=== PATIENT | female | born 1985 | race Caucasian/White ===

== ENCOUNTER 2017-02-10 16:08 | Inpatient (IN) | payer BC ==
[2017-02-10] MEDS ORDERED: Sodium Chloride 0.9% 1,000 ML IV STA (17:06)
[2017-02-10 17:21] LABS: URINE BILIRUBIN NEGATIVE (NEGATIVE); URINE BLOOD TRACE-INTACT (NEGATIVE); URINE GLUCOSE (UA) NEGATIVE (NEGATIVE); URINE KETONE 40 mg/dL (NEGATIVE); URINE LEUKOCYTE ESTERASE SMALL Leu/uL (NEGATIVE); URINE PROTEIN NEGATIVE mg/dL (<30 mg/dL); URINE UROBILINOGEN 0.2 E.U./dL (<1 E.U./dL)
[2017-02-10 17:37] LABS: URINE APPEARANCE SL CLOUDY (CLEAR); URINE COLOR YELLOW (YELLOW)
[2017-02-10 17:39] LABS: URINE BACTERIA MANY (NEG); URINE WBC 25 - 30 /hpf (0-6)
[2017-02-10 17:44] LABS: INR 1.21 (0.93-1.08); PARTIAL THROMBOPLASTIN TIME 32.9 Seconds (25.1-36.5)
[2017-02-10 17:55] LABS: BASO # 0.02 K/mm3 (0.0-2.0); BASO % 0.2 % (0.0-3.0); EOS # 0.1 (0.0-0.7); EOS % 1.1 % (1.5-5.0); GRAN # 10.51 (1.4-6.5); GRAN % 83.3 % (50.0-68.0); HEMATOCRIT 40.9 % (36.0-48.0); LYMPH # 1.2 (1.2-3.4); LYMPH % 9.3 % (22.0-35.0); MEAN CELL VOLUME 84.7 fl (80.0-105.0); MEAN CORPUSCULAR HEMOGLOBIN 27.5 pg (25.0-35.0); MEAN CORPUSCULAR HGB CONC 32.5 g/dl (31.0-37.0); MEAN PLATELET VOLUME 12.4 fl (7.0-11.0); MONO # 0.8 (0.1-0.6); MONO % 6.1 % (1.0-6.0); RED CELL DISTRIBUTION WIDTH 13.4 % (11.5-14.5); WHITE BLOOD COUNT 12.6 10^3/ul (4.5-11.0)
--- NOTE | 2017-02-10 18:17 | ED PDOC ---
Arrival/HPI - General Chief Complaint: Abdominal Pain Time Seen by Provider: 02/10/17 16:56 Historian: Patient - History of Present Illness Narrative History of Present Illness (Text): 02/10/17 18:15 31yo female who present with constant RLQ abdominal pain , that started at 1200pm. she denies any associated nausea, vomiting,diarrhea, constipation, fever , chills, urinary symptoms, hematemesis, hematochezia, any other complaint. Past Medical History - Provider Review Nursing Documentation Reviewed: Yes - Infectious Disease Hx of Infectious Diseases: None - Reproductive Menopause: Yes - Psychiatric Hx Substance Use: No Family/Social History - Physician Review Nursing Documentation Reviewed: Yes Family/Social History: Unknown Family HX Smoking Status: Unknown If Ever Smoked Hx Alcohol Use: No Hx Substance Use: No Allergies/Home Meds Allergies/Adverse Reactions: Allergies No Known Allergies Allergy (Verified 02/10/17 16:52) Home Medications: Home Meds Medication Instructions Recorded Confirmed No Known Home Med 02/10/17 02/10/17 Review of Systems - Physician Review All systems were reviewed & negative as marked: Yes - Review of Systems Constitutional: Normal Eyes: Normal ENT: Normal Respiratory: Normal Cardiovascular: Normal Gastrointestinal: Abdominal Pain. absent: Constipation, Diarrhea, Nausea, Vomiting, Hematochezia, Hematemesis Genitourinary Female: Normal Musculoskeletal: Normal Skin: Normal Neurological: Normal Endocrine: Normal Hemo/Lymphatic: Normal Psychiatric: Normal Physical Exam Vital Signs Reviewed: Yes Vital Signs Temp Pulse Resp BP Pulse Ox 02/10/17 16:48 99.5 F 77 18 128/76 99 Temperature: Afebrile Blood Pressure: Normal Pulse: Regular Respiratory Rate: Normal Appearance: Positive for: Well-Appearing, Non-Toxic, Comfortable Pain Distress: None Mental Status: Positive for: Alert and Oriented X 3 - Systems Exam Head: Present: Atraumatic, Normocephalic Pupils: Present: PERRL Extroacular Muscles: Present: EOMI Conjunctiva: Present: Normal Mouth: Present: Moist Mucous Membranes Neck: Present: Normal Range of Motion Respiratory/Chest: Present: Clear to Auscultation, Good Air Exchange. No: Respiratory Distress, Accessory Muscle Use Cardiovascular: Present: Regular Rate and Rhythm, Normal S1, S2. No: Murmurs Abdomen: Present: Tenderness (RLQ tenderness), Normal Bowel Sounds, Guarding ( Voluntary), Other (Soft). No: Distention, Peritoneal Signs, Rebound, McBurney' s Point Tender, Rovsing's Sign Present Back: Present: Normal Inspection Upper Extremity: Present: Normal Inspection. No: Cyanosis, Edema Lower Extremity: Present: Normal Inspection. No: Edema Neurological: Present: GCS=15, CN II-XII Intact, Speech Normal Skin: Present: Warm, Dry, Normal Color. No: Rashes Psychiatric: Present: Alert, Oriented x 3, Normal Insight, Normal Concentration Medical Decision Making ED Course and Treatment: 02/10/17 20:47 31yo female in ED for RLQ x hours. Lab ordered NS, Toradol, Pepcid ordered Abdominal CT ordered Leukocytosis was noted . Pt's pain was controlled in ED with medication Abdominal CT prominence of the retrocecal appendix with wall thickening and minimal adjacent inflammation. Maximal diameter is approximately 10 mm. There is minimal inflammation and edema in the right colic gutter. There is moderate stool in the right and transverse colon. There is scattered diverticulosis. Appendix: See stomach and bowel PELVIS: Bladder: unremarkable Reproductive: Uterus is retroflexed. There is an IUD. Adnexa are unremarkable. ABDOMEN and PELVIS: Intraperitoneal space: There is no significant fluid.There is no free air. Bones/joints: There are no acute osseous abnormalities. Soft tissues: There is a small fat containing umbilical hernia. Vasculature: Vascular structures are unremarkable. Lymph nodes: There is no pathologic adenopathy. IMPRESSION: Appendicitis; probable constipation and Case was DW Dr. Gallagher and pt was admitted Case was DAVID Strange and the neurosurgical physician assistant Radha ordered Result and plan was DW the pt and the family members by the bedside. - Lab Interpretations Lab Results: 02/10/17 17:25 02/10/17 17:25 Lab Results 02/10/17 17:25: Sodium 139, Potassium 3.7, Chloride 102, Carbon Dioxide 27, Anion Gap 14, BUN 18, Creatinine 0.6 L, Est GFR ( Amer) > 60, Est GFR ( Non-Af Amer) > 60, Random Glucose 90, Calcium 9.1, Total Bilirubin 1.0, AST 34, ALT 50, Alkaline Phosphatase 68, Total Protein 8.4 H, Albumin 4.7, Globulin 3.7 , Albumin/Globulin Ratio 1.2, Lipase 46 02/10/17 17:25: PT 13.2 H, INR 1.21 H, APTT 32.9 02/10/17 17:25: WBC 12.6 H, RBC 4.83, Hgb 13.3, Hct 40.9, MCV 84.7, MCH 27.5, MCHC 32.5, RDW 13.4, Plt Count 168, MPV 12.4 H, Gran % 83.3 H, Lymph % (Auto) 9.3 L, [place] % (Auto) 6.1 H, Eos % (Auto) 1.1 L, Baso % (Auto) 0.2, Gran # 10.51 H, Lymph # 1.2, [place] # 0.8 H, Eos # 0.1, Baso # 0.02 02/10/17 17:10: Urine Color Yellow, Urine Appearance Sl cloudy, Urine pH 6.0, Ur Specific [place] >= 1.030, Urine Protein Negative, Urine Glucose (UA) Negative, Urine Ketones 40 H, Urine Blood Trace-intact H, Urine Nitrate Negative , Urine Bilirubin Negative, Urine Urobilinogen 0.2, Ur Leukocyte Esterase Small H, Urine RBC 5 - 10, Urine WBC 25 - 30, Ur Epithelial Cells 6 - 8, Urine Bacteria Many - RAD Interpretation Radiology Orders: 02/10/17 18:07 ABD & PELVIS IV CONTRAST ONLY [CT] Stat - Medication Orders Current Medication Orders: Discontinued Medications Famotidine (Pepcid) 20 mg IVP STAT STA Stop: 02/10/17 17:07 Last Admin: 02/10/17 17:22 Dose: 20 mg IVP Administration Document 02/10/17 17:22 SE (Rec: 02/10/17 17:22 SE [id number]) Charges for Administration # of IVP Administrations 1 Sodium Chloride (Sodium Chloride 0.9%) 1,000 mls @ 1,000 mls/hr IV .Q1H STA Stop: 02/10/17 18:05 Last Admin: 02/10/17 17:22 Dose: 1,000 mls/hr eMAR Start Stop Document 02/10/17 17:22 SE (Rec: 02/10/17 17:22 SE [id number]) Intravenous Solution Start Date 02/10/17 Start Time 17:22 Piperacillin Sod/Tazobactam Sod (Zosyn 3.375 In Ns 100ml) 100 mls @ 200 mls/hr IVPB STAT STA PRN Reason: Protocol Stop: 02/10/17 20:47 Last Admin: 02/10/17 20:31 Dose: 200 mls/hr eMAR Start Stop Document 02/10/17 20:31 SE (Rec: 02/10/17 20:32 SE [id number]) Intravenous Solution Start Date 02/10/17 Start Time 20:31 Ketorolac Tromethamine (Toradol) 30 mg IVP STAT STA Stop: 02/10/17 17:07 Last Admin: 02/10/17 17:22 Dose: 30 mg MAR Pain Assessment Document 02/10/17 17:22 SE (Rec: 02/10/17 17:22 SE [id number]) Pain Reassessment Is this a pain reassessment? No Sleep Is patient sleeping during reassessment? No Presence of Pain Presence of Pain Yes Pain Scale Used Pain Scale Used Numeric IVP Administration Document 02/10/17 17:22 SE (Rec: 02/10/17 17:22 SE [id number]) Charges for Administration # of IVP Administrations 1 Disposition/Present on Arrival - Present on Arrival Any Indicators Present on Arrival: No History of DVT/PE: No History of Uncontrolled Diabetes: No Urinary Catheter: No History of Decub. Ulcer: No History Surgical Site Infection Following: None - Disposition Have Diagnosis and Disposition been Completed?: Yes Diagnosis: Appendicitis Disposition: HOSPITALIZED Disposition Time: 20:50 Condition: FAIR
[2017-02-10 18:31] LABS: ALB/GLOB RATIO 1.2 (1.1-1.8); ALKALINE PHOSPHATASE 68 U/L (38-126); ALT/SGPT 50 U/L (7-56); AST/SGOT 34 U/L (14-36); BLOOD UREA NITROGEN 18 mg/dL (7-21); CALCIUM 9.1 mg/dL (8.4-10.5); CARBON DIOXIDE 27 mmol/L (21-33); CHLORIDE 102 mmol/L (98-107); GFR AFRICAN-AMERICAN > 60; GLUCOSE,RANDOM 90 mg/dL (70-110); POTASSIUM 3.7 mmol/L (3.6-5.0); SODIUM 139 mmol/L (132-148); TOTAL PROTEIN 8.4 g/dL (5.8-8.3)
[2017-02-10] MEDS ORDERED: Iohexol 350 MG/100 ML VIAL ONE (18:39)
[2017-02-10 18:44] LABS: LIPASE 46 U/L (23-300)
--- NOTE | 2017-02-10 19:54 | CT ---
EXAM: CT Abdomen and Pelvis With Intravenous Contrast EXAM DATE/TIME: 02/10/2017 6:07 PM CLINICAL HISTORY: 31 years old, female; Pain; Abdominal pain; Localized; Right TECHNIQUE: Axial computed tomography images of the abdomen and pelvis with intravenous contrast. All CT scans at this facility use one or more dose reduction techniques, viz.: automated exposure control; ma/kV adjustment per patient size (including targeted exams where dose is matched to indication; i.e. head); or iterative reconstruction technique. MIP reconstructed images were created and reviewed. Coronal and sagittal reformatted images were created and reviewed. CONTRAST: 95 mL of omnipaque 350 administered intravenously. COMPARISON: There are no prior studies for comparison. FINDINGS: Artifacts: Motion artifact degrades image quality. Lower thorax: Heart size is normal. There is a small hiatal hernia. Lung bases are clear ABDOMEN: Liver: unremarkable Gallbladder and bile ducts: unremarkable Pancreas: unremarkable Spleen: unremarkable Adrenals: Adrenals are mildly nodular. Kidneys and ureters: unremarkable Stomach and bowel: Stomach is almost empty. Rotation is normal. Proximal small bowel is mildly distended. The small bowel is mildly distended with air. There is fecalization of the distal and terminal ileum. There is mild prominence of the retrocecal appendix with wall thickening and minimal adjacent inflammation. Maximal diameter is approximately 10 mm. There is minimal inflammation and edema in the right colic gutter. There is moderate stool in the right and transverse colon. There is scattered diverticulosis. Appendix: See stomach and bowel PELVIS: Bladder: unremarkable Reproductive: Uterus is retroflexed. There is an IUD. Adnexa are unremarkable. ABDOMEN and PELVIS: Intraperitoneal space: There is no significant fluid.There is no free air. Bones/joints: There are no acute osseous abnormalities. Soft tissues: There is a small fat containing umbilical hernia. Vasculature: Vascular structures are unremarkable. Lymph nodes: There is no pathologic adenopathy. IMPRESSION: Appendicitis; probable constipation and Additional findings as described above.
[2017-02-10] MEDS ORDERED: Piperacillin/Tazobact 3.375 gm 100 ML IVPB STA (20:18)
[2017-02-10] MEDS ORDERED: Lactated Ringer's 1,000 ML IV SCH (22:15)
--- NOTE | 2017-02-10 22:24 | CP.PCM.CON ---
<Osmani Oliver - Last Filed: 02/10/17 22:18> History of Present Illness - History of Present Illness History of Present Illness: General Surgery Consult note. Dr. Sparrow 31yo F with no PMHx here for evaluation of acute abdominal pain. [place] 12PM [place] Described as originally localized to the periumbilical region, then slowly localized to the RLQ. Pain does radiate to the Right flank and down right inguinal region. Last meal was at 10AM. She does report some constipation for the past 2 days, took 1 dose of OTC miralax 2 days ago without any improvement. She does report that she is 3 months post- after a normal, uncomplicated vaginal delivery and is currently breast- feeding. She denies any N/V/D. Denies F/C. No urinary complaints. No dizziness. No headaches. No chest pain, SOB. No fatigue. No sick contacts. Has not had menstrual periods since recent delivery. Urine test is negative. PMD: Dr. Gallagher PMHx: denies PSHx: denies Family Hx: deneis Social Hx: denies Tobacco use, denies ETOH, denies illicit drugs. Lives at home with family NKDA Review of Systems - Review of Systems All systems: reviewed and no additional remarkable complaints except - Constitutional Constitutional: absent: Chills, Fever - Cardiovascular Cardiovascular: absent: Chest Pain, Diaphoresis, Dyspnea - Respiratory Respiratory: absent: Dyspnea - Gastrointestinal Gastrointestinal: Abdominal Pain, Constipation. absent: Diarrhea, Nausea, Vomiting - Genitourinary Genitourinary: absent: Difficulty Urinating, Dysuria - Neurological Neurological: absent: Dizziness, Headaches Past Patient History - Infectious Disease Hx of Infectious Diseases: None - Past Social History Smoking Status: Unknown If Ever Smoked - PSYCHIATRIC Hx Substance Use: No Meds Allergies/Adverse Reactions: Allergies Allergy/AdvReac Type Severity Reaction Status Date / Time No Known Allergies Allergy Verified 02/10/17 16:52 - Medications Medications: Current Medications Acetaminophen (Tylenol 325mg Tab) 650 mg PO Q6H PRN PRN Reason: Fever >100.4 F Lactated Ringer's (Lactated Ringer's) 1,000 mls @ 100 mls/hr IV .Q10H TSERING Piperacillin Sod/Tazobactam Sod (Zosyn 3.375 In Ns 100ml) 100 mls @ 200 mls/hr IVPB Q6 TSERING PRN Reason: Protocol Stop: 02/11/17 06:29 Ketorolac Tromethamine (Toradol) 15 mg IVP Q6 PRN PRN Reason: Pain, moderate (4-7) Ondansetron HCl (Zofran Inj) 4 mg IVP Q6H PRN PRN Reason: Nausea/Vomiting Physical Exam - Constitutional Appears: Well, Non-toxic, No Acute Distress - Head Exam Head Exam: ATRAUMATIC, NORMAL INSPECTION, NORMOCEPHALIC - Eye Exam Eye Exam: EOMI, Normal appearance. absent: Scleral icterus - ENT Exam ENT Exam: Mucous Membranes Moist - Respiratory Exam Respiratory Exam: Clear to Auscultation Bilateral, NORMAL BREATHING PATTERN. absent: Accessory Muscle Use, Decreased Breath Sounds, Rales, Rhonchi, Wheezes, Respiratory Distress - Cardiovascular Exam Cardiovascular Exam: RRR, +S1, +S2. absent: Diastolic murmur, JVD, Systolic Murmur - GI/Abdominal Exam GI & Abdominal Exam: Soft. absent: Distended, Firm, Guarding, Rebound, Rigid Additional comments: RLQ moderate tenderness to palpation. - Extremities Exam Extremities exam: Positive for: normal inspection. Negative for: calf tenderness, pedal edema - Neurological Exam Neurological exam: Alert, CN II-XII Intact, Oriented x3 - Psychiatric Exam Psychiatric exam: Normal Affect, Normal Mood - Skin Skin Exam: Dry, Intact, Normal Color, Warm Results - Vital Signs Recent Vital Signs: Last Vital Signs Temp 99.5 F 02/10/17 16:48 Pulse 77 02/10/17 16:48 Resp 18 02/10/17 16:48 BP 128/76 02/10/17 16:48 Pulse Ox 99 02/10/17 16:48 - Labs Result Diagrams: 02/10/17 17:25 02/10/17 17:25 Assessment & Plan - Assessment and Plan (Free Text) Assessment: 31yo F here with acute appendicitis - Plan for OR in the mornin/30 - NPO after midnight - continue IVF - continue abx - pain management - f/u preop CXR, EKG - f/u AM labs - written consent obtained and on chart - recommended to cease breast feeding until further notice. Patient expressed full understanding. Further recs as per Dr. Kyara Oliver PGY1 surgery pager: [phone] <Berto Sparrow - Last Filed: 02/10/17 23:12> Meds - Medications Medications: Current Medications Acetaminophen (Tylenol 325mg Tab) 650 mg PO Q6H PRN PRN Reason: Fever >100.4 F Lactated Ringer's (Lactated Ringer's) 1,000 mls @ 100 mls/hr IV .Q10H [facility] Last Admin: 02/10/17 22:37 Dose: 100 mls/hr Piperacillin Sod/Tazobactam Sod (Zosyn 3.375 In Ns 100ml) 100 mls @ 200 mls/hr IVPB Q6 TSERING PRN Reason: Protocol Stop: 02/11/17 06:29 Ketorolac Tromethamine (Toradol) 15 mg IVP Q6 PRN PRN Reason: Pain, moderate (4-7) Ondansetron HCl (Zofran Inj) 4 mg IVP Q6H PRN PRN Reason: Nausea/Vomiting Pantoprazole Sodium (Protonix Inj) 40 mg IVP DAILY [facility] Results - Vital Signs Recent Vital Signs: Last Vital Signs Temp 99.5 F 02/10/17 16:48 Pulse 77 02/10/17 16:48 Resp 18 02/10/17 16:48 BP 128/76 02/10/17 16:48 Pulse Ox 99 02/10/17 16:48 - Labs Result Diagrams: 02/10/17 17:25 02/10/17 17:25 Assessment & Plan - Assessment and Plan (Free Text) Plan: Patient was seen and examined by me. I agree with assessment and plan as per resident's note. However, given the presence of leukocytosis in urine and possibility of UTI as well as possibly this beeing just an early appendicitis we will proceed with hydration and antibiotics overnight and reevaluate in the morning for possible appendectomy. - Date & Time Date: 02/10/17 Time: 23:12
[2017-02-10] MEDS ORDERED: HYDROmorphone 1 mg/ml ISec IVP PRN (23:12)
[2017-02-10] MEDS ORDERED: Sodium Chloride 0.9% 1,000 ML IV SCH (23:15)
--- NOTE | 2017-02-11 00:19 | CP.PCM.PN ---
Subjective - Date & Time of Evaluation Date of Evaluation: 02/11/17 Time of Evaluation: 00:19 - Subjective Subjective: S:Patient is having nausea. Had dilaudid 1 mg IV given earlier. Has no other complaints. Requests to reduce dose of dilaudid. Medical record was reviewed. O: Last Vital Signs 3 Temp 97.5 F L 02/11/17 00:03 Pulse 64 02/11/17 00:03 Resp 18 02/11/17 00:03 BP 102/59 L 02/11/17 00:03 Pulse Ox 99 02/10/17 16:48 Awake, alert. Not in distress. LUNGS:Normal breathing pattern. A:Nausea 2* to dilaudid. P:Zofran 4 mg IV x 1 . Change dilaudid to 0.5 mg. Objective - Vital Signs/Intake and Output Vital Signs (last 24 hours): Temp Pulse Resp BP Pulse Ox 97.5 F L 64 18 102/59 L 99 02/11/17 00:03 02/11/17 00:03 02/11/17 00:03 02/11/17 00:03 02/10/17 16:48 - Medications Medications: Current Medications Acetaminophen (Tylenol 325mg Tab) 650 mg PO Q6H PRN PRN Reason: Fever >100.4 F Hydromorphone HCl (Dilaudid) 1 mg IVP Q4H PRN PRN Reason: Pain, moderate (4-7) Piperacillin Sod/Tazobactam Sod (Zosyn 3.375 In Ns 100ml) 100 mls @ 200 mls/hr IVPB Q6 TSERING PRN Reason: Protocol Stop: 02/11/17 06:29 Sodium Chloride (Sodium Chloride 0.9%) 1,000 mls @ 100 mls/hr IV .Q10H [facility]ERING - Labs Labs: PT 13.2 SECONDS (9.4-12.5) H 02/10/17 17:25 INR 1.21 (0.93-1.08) H 02/10/17 17:25 APTT 32.9 Seconds (25.1-36.5) 02/10/17 17:25
[2017-02-11] MEDS: Piperacillin/Tazobact 3.375 gm 100 ML IVPB SCH ×4 (01:41→18:07)
[2017-02-11] MEDS ORDERED: Sodium Chloride 0.9% 500 ML IV STA ×2 (05:31→05:33)
[2017-02-11] MEDS ORDERED: HYDROmorphone 0.5 mg/0.5 ml ISec IVP PRN ×2 (05:36→09:23)
[2017-02-11 06:41] LABS: INR 1.29 (0.93-1.08)
[2017-02-11 06:47] LABS: BASO # 0.01 K/mm3 (0.0-2.0); BASO % 0.1 % (0.0-3.0); EOS # 0.1 (0.0-0.7); GRAN # 5.1 (1.4-6.5); GRAN % 71.8 % (50.0-68.0); HEMATOCRIT 33.7 % (36.0-48.0); LYMPH # 1.4 (1.2-3.4); LYMPH % 20.3 % (22.0-35.0); MEAN CELL VOLUME 84.7 fl (80.0-105.0); MEAN CORPUSCULAR HEMOGLOBIN 27.9 pg (25.0-35.0); MEAN CORPUSCULAR HGB CONC 32.9 g/dl (31.0-37.0); MEAN PLATELET VOLUME 12.4 fl (7.0-11.0); MONO # 0.5 (0.1-0.6); MONO % 6.8 % (1.0-6.0); RED CELL DISTRIBUTION WIDTH 13.7 % (11.5-14.5); WHITE BLOOD COUNT 7.1 10^3/ul (4.5-11.0)
[2017-02-11 06:56] LABS: ALB/GLOB RATIO 1.2 (1.1-1.8); ALKALINE PHOSPHATASE 51 U/L (38-126); ALT/SGPT 51 U/L (7-56); AST/SGOT 26 U/L (14-36); BILIRUBIN,TOTAL 0.8 mg/dL (0.2-1.3); BLOOD UREA NITROGEN 14 mg/dL (7-21); CALCIUM 8.2 mg/dL (8.4-10.5); CARBON DIOXIDE 27 mmol/L (21-33); CHLORIDE 108 mmol/L (98-107); GFR AFRICAN-AMERICAN > 60; GLUCOSE,RANDOM 80 mg/dL (70-110); SODIUM 141 mmol/L (132-148); TOTAL PROTEIN 6.4 g/dL (5.8-8.3)
--- NOTE | 2017-02-11 07:17 | CP.PCM.HP ---
History of Present Illness - History of Present Illness History of Present Illness: Surgery H&P. Dr. Sparrow 31yo F with no PMHx here for evaluation of acute abdominal pain. Pain started [place] 12PM [place]. Described as originally localized to the periumbilical region, then slowly localized to the RLQ. Pain does radiate to the Right flank and down right inguinal region. Last meal was at 10AM. She does report some constipation for the past 2 days, took 1 dose of OTC miralax 2 days ago without any improvement. She does report that she is 3 months post- after a normal, uncomplicated vaginal delivery and is currently breast- feeding. She denies any N/V/D. Denies F/C. No urinary complaints. No dizziness. No headaches. No chest pain, SOB. No fatigue. No sick contacts. Has not had menstrual periods since recent delivery. Urine test is negative. PMD: Dr. Gallagher PMHx: denies PSHx: denies Family Hx: deneis Social Hx: denies Tobacco use, denies ETOH, denies illicit drugs. Lives at home with family NKDA Physical Exam: Head: NCAT ENT: mucous membranes moist Cardiac: RRR, No murmurs, no gallops or rubs Resp: Clear to auscultation bilaterally. No wheezes, no rhonchi Abdomen: Positive McBurney's point tenderness. RLQ tenderness. No CVA tenderness. No Rebound tenderness. No guarding. No previous surgical scars apparent. No hernia or masses palpable. Abd is soft, non distended. Extremity: No calf tenderness. No edema. DP, PT pulses intact bilaterally Skin: No jaundice. Warm, dry, intact Review of Systems - Review of Systems All systems: reviewed and no additional remarkable complaints except - Constitutional Constitutional: absent: Chills, Fever - Cardiovascular Cardiovascular: absent: Chest Pain, Dyspnea - Respiratory Respiratory: absent: Cough, Dyspnea - Gastrointestinal Gastrointestinal: Abdominal Pain, Nausea, Vomiting Past Patient History - Infectious Disease Hx of Infectious Diseases: None - Past Social History Smoking Status: Never Smoked - HEMATOLOGICAL/ONCOLOGICAL Hx Blood Transfusions: No Hx Blood Transfusion Reaction: No (unknown) - MUSCULOSKELETAL/RHEUMATOLOGICAL Hx Falls: No - PSYCHIATRIC Hx Substance Use: No - SURGICAL HISTORY Hx Surgeries: No - ANESTHESIA Hx Anesthesia Reactions: Yes (itching) Hx Malignant Hyperthermia: No Meds Allergies/Adverse Reactions: Allergies Allergy/AdvReac Type Severity Reaction Status Date / Time No Known Allergies Allergy Verified 02/10/17 16:52 Physical Exam - Constitutional Appears: Well, Non-toxic, No Acute Distress - Head Exam Head Exam: ATRAUMATIC, NORMAL INSPECTION, NORMOCEPHALIC - ENT Exam ENT Exam: Mucous Membranes Moist - Respiratory Exam Respiratory Exam: Clear to Auscultation Bilateral. absent: Rhonchi - Cardiovascular Exam Cardiovascular Exam: absent: JVD - GI/Abdominal Exam GI & Abdominal Exam: Soft. absent: Distended, Guarding, Rebound, Rigid Additional comments: RLQ tenderness. MuBurneys point tenderness. - Extremities Exam Extremities exam: Negative for: calf tenderness, pedal edema - Neurological Exam Neurological exam: Alert, Oriented x3 - Skin Skin Exam: Dry, Intact, Normal Color, Warm Results - Vital Signs Recent Vital Signs: Last Vital Signs Temp 97.5 F L 02/11/17 00:03 Pulse 64 02/11/17 00:03 Resp 18 02/11/17 00:03 BP 102/59 L 02/11/17 00:03 Pulse Ox 99 02/10/17 16:48 - Labs Result Diagrams: 02/11/17 06:15 02/11/17 06:15 Labs: Laboratory Results - last 24 hr 02/11/17 02/11/17 02/11/17 00:53 06:15 06:15 WBC 7.1 D RBC 3.98 Hgb 11.1 L D Hct 33.7 L MCV 84.7 MCH 27.9 MCHC 32.9 RDW 13.7 Plt Count 155 MPV 12.4 H Gran % 71.8 H Lymph % (Auto) 20.3 L Thomas % (Auto) 6.8 H Eos % (Auto) 1.0 L Baso % (Auto) 0.1 Gran # 5.10 Lymph # 1.4 Thomas # 0.5 Eos # 0.1 Baso # 0.01 PT INR Sodium 141 Potassium 4.0 Chloride 108 H Carbon Dioxide 27 Anion Gap 10 BUN 14 Creatinine 0.6 L Est GFR ( Amer) > 60 Est GFR (Non-Af Amer) > 60 POC Glucose (mg/dL) 59 L Random Glucose 80 Calcium 8.2 L Total Bilirubin 0.8 AST 26 ALT 51 Alkaline Phosphatase 51 Total Protein 6.4 Albumin 3.5 Globulin 2.9 Albumin/Globulin Ratio 1.2 BBK History Checked 02/11/17 02/11/17 06:15 06:15 WBC RBC Hgb Hct MCV MCH MCHC RDW Plt Count MPV Gran % Lymph % (Auto) Thomas % (Auto) Eos % (Auto) Baso % (Auto) Gran # Lymph # Thomas # Eos # Baso # PT 14.3 H INR 1.29 H Sodium Potassium Chloride Carbon Dioxide Anion Gap BUN Creatinine Est GFR ( Amer) Est GFR (Non-Af Amer) POC Glucose (mg/dL) Random Glucose Calcium Total Bilirubin AST ALT Alkaline Phosphatase Total Protein Albumin Globulin Albumin/Globulin Ratio BBK History Checked No verified bt
[2017-02-11] MEDS ORDERED: Bupivacaine 0.5% Inj(30mL) ONE (07:36)
[2017-02-11] MEDS ORDERED: Midazolam 2 MG/2 ML VIAL ONE ×2 (07:38→08:51)
[2017-02-11] MEDS ORDERED: Rocuronium 10 mg/ml (5 ml) ONE (07:39)
[2017-02-11] MEDS ORDERED: Succinylcholine 200 mg/10 ml Inj IV ONE (07:39)
[2017-02-11] MEDS ORDERED: Propofol 10 mg/ml Inj (20 ML) ONE (07:39)
--- NOTE | 2017-02-11 08:33 | RAD ---
HISTORY: preop COMPARISON: No prior. FINDINGS: LUNGS: No active pulmonary disease. PLEURA: No significant pleural effusion identified, no pneumothorax apparent. CARDIOVASCULAR: Normal. OSSEOUS STRUCTURES: No significant abnormalities. VISUALIZED UPPER ABDOMEN: Normal. OTHER FINDINGS: None. IMPRESSION: No active disease.
[2017-02-11] MEDS ORDERED: Sevoflurane - Inhalation Anesthetic Liq (250 ml) ONE (08:57)
--- NOTE | 2017-02-11 09:25 | PCM.SURG1 ---
Surgeon's Initial Post Op Note - Surgeon's Notes Surgeon: Dr. Sparrow Continuous Process Machine Operator: Dr. Aguirre PGY-3, Ry MS4 Type of Anesthesia: General Endo Anesthesia Administered By: Dr. Candelaria Pre-Operative Diagnosis: Acute Appendicitis Operative Findings: See operative report Post-Operative Diagnosis: Same Operation Performed: Laparoscopic Appendectomy Specimen/Specimens Removed: Appendix Estimated Blood Loss: EBL {In ML}: 5 Blood Products Given: N/A Drains Used: No Drains Post-Op Condition: Good Date of Surgery/Procedure: 02/11/17 Time of Surgery/Procedure: 09:24
[2017-02-11] MEDS ORDERED: Lactated Ringer's 1,000 ML IV SCH (09:30)
--- NOTE | 2017-02-11 10:41 | OP ---
PROCEDURE DATE: 02/11/2017 PREOPERATIVE DIAGNOSIS: Acute appendicitis. POSTOPERATIVE DIAGNOSIS: Acute appendicitis. PROCEDURE PERFORMED: Laparoscopic appendectomy. SURGEON: Berto Sparrow MD WELLNESS GUIDE: Dr. Aguirre. TYPE OF ANESTHESIA: General endotracheal anesthesia. ESTIMATED BLOOD LOSS: Minimal. SPECIMEN: Inflamed appendix. DESCRIPTION OF PROCEDURE: The patient is a 31-year-old female with history of periumbilical pain radiating and moving to the right lower quadrant and CT scan showing presence of possible inflamed appendix. The patient was observed overnight, hydrated, given antibiotics and now brought into the operating room for laparoscopic appendectomy due to the fact that she was continuing to have the right lower quadrant pain. First, the patient was brought into the operating room, placed on the operative table in supine position. The patient was connected to the EKG, blood pressure, and pulse oximetry monitors. The patient then underwent general endotracheal anesthesia and was prepped and draped in the usual sterile fashion. First, a standard time-out procedure took place and everybody in the room agreed as to the patient's identity, diagnoses, and procedure to be performed. Using 2 towel clips, the anterior abdominal wall was elevated at the umbilicus and the area superior to the umbilicus was infiltrated. A small incision was made in the upper border of the umbilicus and careful dissection was done to the fascia. Now, Veress needle was inserted through that fascia into the abdominal cavity and pneumoperitoneum was obtained. A 12 mm trocar was then placed through that incision and careful evaluation of the abdominal cavity begun. First, an omentum overlying the cecum was moved up and cecum was elevated showing presence of inflamed appendix. I then placed the second 10 mm trocar in the suprapubic position and carefully proceeded with dissection of the mesoappendix. This was done using Harmonic scalpel. Once this was done all the way to the base of the appendix, I then proceeded with placing endo STEPHANIE stapler and stapled appendix at its base grabbing portion of the cecum. Once this was done, the stapler was fired and the suture line was inspected showing no evidence of bleeding. At this point, I proceeded with irrigating the area of the right lower quadrant and there was excellent hemostasis noted there. We also carefully inspected the pelvis where there was some amount of yellowish fluid, which was also irrigated and suctioned out. Once this was done and the rest of the abdomen appeared benign, we then proceeded with evaluating the trocar site, which were not bleeding and removed the pneumoperitoneum, removed the trocars and closed the wounds using 0-Vicryl for the fascia, 3-0 Vicryl for the subcutaneous tissue, and 4-0 Monocryl for the skin. A sterile Dermabond dressing was applied to the wound. The patient tolerated the procedure well and there were no complications. The patient was awakened and transferred to recovery room for further observation. Berto Sparrow MD
[2017-02-11 16:47] VITALS: BP 102/57; PULSE 78; RESP 18; TEMP 98.6; O2SAT 97
== END 2017-02-11 20:16 | disposition home or self-care (01) | DRG 343 ==
LOC: ED 16:08 → ERH 20:19 → 5RNO 22:45
PROVIDERS: ADMIT Internal Medicine; ATTEND Internal Medicine
PROC: 0DTJ4ZZ Resection of Appendix, Percutaneous Endoscopic Approach (ICD-10-PCS; principal; 2017-02-11 07:30)
DX: K35.80 Unspecified acute appendicitis (principal); K59.00 Constipation, unspecified